=== PATIENT | male | born 1970 | race Caucasian/White ===

== ENCOUNTER 2018-05-10 13:29 | Emergency (ER) | payer SELFPAY ==
[2018-05-10] MEDS ORDERED: Adacel (T-DAP) 0.5 ML VIAL ONE (14:05)
[2018-05-10] MEDS ORDERED: Lidocaine 1% 20 ML MDV ONE (14:05)
[2018-05-10] MEDS ORDERED: Triple Antibiotic Oint 1 GM Packet ONE (14:46)
== END 2018-05-10 15:06 | disposition home or self-care (01) ==
LOC: NAV ERS 13:29
DX: S81.011A Laceration without foreign body, right knee, initial encounter (principal); E78.5 Hyperlipidemia, unspecified; I10 Essential (primary) hypertension; F31.9 Bipolar disorder, unspecified; F17.220 Nicotine dependence, chewing tobacco, uncomplicated; Z79.899 Other long term (current) drug therapy; W45.8XXA Other foreign body or object entering through skin, initial encounter
CPT/HCPCS: 12001; 90471; 90715; J2001